=== PATIENT | male | born 1955 | race Two or more races ===

== ENCOUNTER 2020-11-16 19:31 | Inpatient (IN) | payer SELFPAY ==
[~2020-11-16] VITALS: Ht 160 cm; Wt 69.6 kg
--- NOTE | 2020-11-16 20:00 | NUR ---
Patient walked into ER c/o SOB for 5 days. He tested + for Covid 19 on 11/08/20. He states he finished antiobiotic but has worsening SOB. O2 sat on RA between 92%-94%.
[2020-11-16 20:31] LABS: *BILIRUBIN,URIN NEGATIVE (NEGATIVE); *BLOOD, URINE NEGATIVE (NEGATIVE); *CLARITY,URINE CLEAR (CLEAR); *COLOR,URINE YELLOW (YELLOW); *KETONES,URINE NEGATIVE (NEGATIVE); *UROBILINOGEN,URINE 0.2 E.U./dl (NORMAL); LEUKOCYTE ESTERASE ,URINE NEGATIVE (NEGATIVE); NITRITE, URINE NEGATIVE (NEGATIVE); PH,URINE 6.5 (5.0-8.0); UGLUCOSE NEGATIVE (NEGATIVE)
[2020-11-16 20:36] LABS: BASOPHILS % (AUTO) 0.2 % (0.0-2.0); EOSINOPHILS % (AUTO) 0.1 % (0.0-7.0); HEMATOCRIT 41.8 % (36.7-47.1); HEMOGLOBIN 14.7 g/dL (12.5-16.3); LYMPHOCYTES # (AUTO) 0.6 K/uL (20.0-40.0); LYMPHOCYTES % (AUTO) 6.4 % (20.5-51.5); MEAN CORPUSCULAR HEMOGLOBIN 31.9 uug (23.8-33.4); MEAN CORPUSCULAR HGB CONC 35 g/dL (32.5-36.3); MEAN CORPUSCULAR VOLUME 90.9 fL (73.0-96.2); MONOCYTES # (AUTO) 0.5 K/uL (2.0-10.0); MONOCYTES % (AUTO) 5.7 % (0.0-11.0); NEUTROPHILS # (AUTO) 8.1 K/uL (1.8-8.9); NEUTROPHILS % (AUTO) 87.6 % (38.5-71.5); PLATELET COUNT (AUTO) 372 K/uL (152-348); POTASSIUM 4.2 mmol/L (3.5-5.1); WHITE BLOOD COUNT (AUTO) 9.3 K/uL (3.6-10.2)
[2020-11-16 20:59] LABS: BILIRUBIN,TOTAL 0.4 mg/dL (0.2-1.0); TOTAL PROTEIN, SERUM 7.4 g/dL (6.4-8.2)
[2020-11-16] MEDS ORDERED: ENOXAPARIN SODIUM 40 MG/0.4 ML DISP.SYRIN SQ SCH (21:00)
[2020-11-16] MEDS ORDERED: DEXAMETHASONE 4 MG TABLET PO ONE (21:00)
[2020-11-16] MEDS ORDERED: DEXAMETHASONE 1 MG TABLET ONE (21:14)
[2020-11-16] MEDS ORDERED: DEXAMETHASONE 4 MG TABLET ONE (21:14)
--- NOTE | 2020-11-16 21:36 | NUR ---
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
--- NOTE | 2020-11-16 21:38 | NUR ---
DR Olivas speaking with DR Dias.
--- NOTE | 2020-11-16 22:20 | NUR ---
Admitted a 64 years old male with diagnosis of COVID PNA. Patient AAOx4, mainly Japanese speaking. Able to understand and speak some Bengali. Denies any pain. Stated he gets SOB with exertion. Request to have O2 in place. Applied O2 at 2LPM via NC. IV site on right AC intact and patent. SR on tele with PVC's at 69/min. Routine admission care done. Plan of care initiated. COVID isolation precaution initiated. Safety measure initiated and call sanders within reach. Continue to monitor.
--- NOTE | 2020-11-16 22:24 | NUR ---
Transfered to 2nd floor Tele via wheelchair.
[2020-11-16] MEDS ORDERED: ALBUTEROL SULFATE 8 GM HFA.AER.AD IH PRN (22:45)
[2020-11-16] MEDS ORDERED: ONDANSETRON 4 MG/2 ML VIAL IV PRN (22:45)
[2020-11-16] MEDS ORDERED: HYDROCODONE/APAP 5-325MG TABLET PO PRN (22:45)
[2020-11-16] MEDS ORDERED: ACETAMINOPHEN 325 MG TABLET PO PRN (22:45)
--- NOTE | 2020-11-16 22:50 | NUR ---
Telephone call from [facility] and reported patient Rapid test for COVID negative. PCR done and pending result. Patient with history of positive COVID on 11/08/20 per pt report/hx.
[2020-11-16 23:10] VITALS: BP 151/70
[2020-11-16] MEDS ORDERED: AZITHROMYCIN 500 MG VIAL IV ONE (23:30)
[2020-11-16] MEDS: ENOXAPARIN SODIUM 40 MG/0.4 ML DISP.SYRIN SQ SCH (23:47)
[2020-11-16] MEDS: AZITHROMYCIN IV 500 MG in IV DEXTROSE 5% 250 ML IV SCH (23:48)
[2020-11-17] VITALS: BP 129/58
[2020-11-17 04:00] VITALS: BP 114/67
[2020-11-17] MEDS: PANTOPRAZOLE SODIUM 40 MG TABLET.DR PO SCH (06:05)
[2020-11-17 06:17] LABS: BASOPHILS # (AUTO) 0.1 K/uL (0.0-8.0); BASOPHILS % (AUTO) 1.7 % (0.0-2.0); HEMATOCRIT 39.1 % (36.7-47.1); HEMOGLOBIN 13.8 g/dL (12.5-16.3); LYMPHOCYTES # (AUTO) 0.3 K/uL (20.0-40.0); LYMPHOCYTES % (AUTO) 6.6 % (20.5-51.5); MEAN CORPUSCULAR HEMOGLOBIN 32.2 uug (23.8-33.4); MEAN CORPUSCULAR HGB CONC 35 g/dL (32.5-36.3); MONOCYTES # (AUTO) 0.2 K/uL (2.0-10.0); MONOCYTES % (AUTO) 3.8 % (0.0-11.0); NEUTROPHILS % (AUTO) 87.9 % (38.5-71.5); PLATELET COUNT (AUTO) 320 K/uL (152-348); WHITE BLOOD COUNT (AUTO) 4.6 K/uL (3.6-10.2)
--- NOTE | 2020-11-17 06:17 | NUR ---
Patient slept well last night. Denies any pain or SOB. On O2 at 2LPM via NC. O2 sat at 96%. IV site on right AC remains intact and patent. No adverse effect noted from IV ABX. SR on tele with PVC's at 65/min. Needs attended to and met. COVID isolation precaution maintained. Safety measure maintained and call sanders within reach.
[2020-11-17 06:24] LABS: CREATININE 0.9 mg/dL (0.6-1.3); POTASSIUM 5.1 mmol/L (3.5-5.1)
[2020-11-17 06:41] LABS: BILIRUBIN,TOTAL 0.4 mg/dL (0.2-1.0); MAGNESIUM 2.2 mg/dL (1.8-2.4); PHOSPHOROUS 5.1 mg/dL (2.5-4.9); TOTAL PROTEIN, SERUM 6.5 g/dL (6.4-8.2)
[2020-11-17] MEDS: DEXAMETHASONE SOD PHOSPHATE 4 MG INJ IV SCH (09:36)
[2020-11-17 12:00] VITALS: BP 104/58
[2020-11-17] MEDS: CEFTRIAXONE 1 G in IV DEXTROSE 5% 50 ML IV SCH (14:42)
[2020-11-17 16:00] VITALS: BP 105/58
--- NOTE | 2020-11-17 18:44 | NUR ---
pt denies any pain or SOB. On O2 at 2LPM via NC. O2 sat at 97%. IV site on right AC remains intact and patent. No adverse effect noted from IV ABX. SR on tele rate at 95/min. Needs attended to and met. COVID isolation precaution maintained. Safety measure maintained and call light within reach.
--- NOTE | 2020-11-17 19:45 | NUR ---
Pt received, in bed and alert. Denies pain or SOB. On 2L sating at 94%. SR on monitor. Call light is within reach. Bed is locked and in lowest position. No other issues or concerns at this time.
[2020-11-17 20:06] VITALS: BP 119/53
[2020-11-17] MEDS: ENOXAPARIN SODIUM 40 MG/0.4 ML DISP.SYRIN SQ SCH (20:26)
[2020-11-17] MEDS: AZITHROMYCIN IV 500 MG in IV DEXTROSE 5% 250 ML IV SCH (22:02)
[2020-11-17] MEDS: GUAIFENESIN/DEXTROMETHORPHAN 5 ML UDC PO PRN (22:36)
[2020-11-18 00:06] VITALS: BP 119/69
[2020-11-18 04:06] VITALS: BP 120/68
[2020-11-18] MEDS: PANTOPRAZOLE SODIUM 40 MG TABLET.DR PO SCH (06:27)
--- NOTE | 2020-11-18 07:55 | NUR ---
Received PT in bed, awake AO X 4 with safety measures. Denies any pain at this time. No acute distress or SOB noted. PT stated that they slept well last night. PT talking without any difficulty. Will continue to monitor. Safety measures provided, call light within reach, bed low and lock.
[2020-11-18] MEDS: DEXAMETHASONE SOD PHOSPHATE 4 MG INJ IV SCH (09:09)
[2020-11-18 12:00] VITALS: BP 120/61
[2020-11-18] MEDS: CEFTRIAXONE 1 G in IV DEXTROSE 5% 50 ML IV SCH (13:06)
[2020-11-18 16:00] VITALS: BP 116/54
[2020-11-18] MEDS: BOOST BREEZE 237 ML LIQUID PO SCH (16:28)
--- NOTE | 2020-11-18 19:30 | NUR ---
Pt received in bed, resting. Denies pain or SOB. On 2L NC sating at 96%. SR on monitor. Denies chest pain. Bed is locked and in lowest position, call light is within reach. No other issues or concerns at this time.
[2020-11-18 20:03] VITALS: BP 115/66
[2020-11-18] MEDS: AZITHROMYCIN 250 MG TABLET PO SCH (21:11)
[2020-11-18] MEDS: ENOXAPARIN SODIUM 40 MG/0.4 ML DISP.SYRIN SQ SCH (21:13)
[2020-11-18] MEDS: GUAIFENESIN/DEXTROMETHORPHAN 5 ML UDC PO PRN (21:54)
[2020-11-19 00:06] VITALS: BP 117/63
[2020-11-19 04:06] VITALS: BP 130/67
[2020-11-19] MEDS: PANTOPRAZOLE SODIUM 40 MG TABLET.DR PO SCH (06:51)
--- NOTE | 2020-11-19 08:00 | NUR ---
Received PT in bed, awake AO X 4 with safety measures. Denies any pain at this time. No acute distress or SOB noted. PT stated that they slept well last night. IV access intact, patent with no swelling or bleeding noted. PT talking without any difficulty. Safety measures provided, call light within reach, bed low and lock. Will continue to monitor.
[2020-11-19] MEDS: DEXAMETHASONE SOD PHOSPHATE 4 MG INJ IV SCH (08:36)
[2020-11-19] MEDS: BOOST BREEZE 237 ML LIQUID PO SCH ×2 (08:36→16:24)
[2020-11-19 11:42] VITALS: BP 116/63
[2020-11-19 14:50] VITALS: BP 105/56
--- NOTE | 2020-11-19 15:00 | NUR ---
Serina Armenta requested for O2 status update. 02 Sat on Room Air at 95-96%. Will be discharge today. Updated daughter, Shani.
--- NOTE | 2020-11-19 18:20 | NUR ---
PT in bed, awake AO X 4 with safety measures. Denies any pain at this time. No acute distress or SOB noted. PT continues to saturate in room air at 96%. PT able to talk without any difficulty. Ambulates to toilet without any exertion. Safety measures provided, call light within reach, bed low and lock. Will endorse to night coordinator nurse.
[2020-11-19] MEDS ORDERED: DEXA4TAB PO (18:58)
[2020-11-19] MEDS ORDERED: DOXY100C41 PO (18:59)
--- NOTE | 2020-11-19 19:30 | NUR ---
Received patient in bed, alert and awake. Denies pain or SOB. On RA sating at 94%. SR on monitor. Bed is locked and in lowest position. Call light is within reach. No other issues or concerns at this time.
[2020-11-19 20:06] VITALS: BP 129/74
[2020-11-19] MEDS: ENOXAPARIN SODIUM 40 MG/0.4 ML DISP.SYRIN SQ SCH (20:33)
[2020-11-19] MEDS: AZITHROMYCIN 250 MG TABLET PO SCH (20:33)
--- NOTE | 2020-11-19 22:00 | NUR ---
Pt discharged at 2129 and was picked up by . Denies pain or SOB. All belongings accounted for. IV removed. Pt left via wheelchair and was stable entire transfer.
== END 2020-11-19 21:30 | disposition home or self-care (01) | DRG 177 ==
LOC: ER 19:31 → TELE 22:08
PROVIDERS: ADMIT Nurse Practitioner Acute Care; ATTEND Nurse Practitioner Acute Care
DX: U07.1 COVID-19 (principal); J96.01 Acute respiratory failure with hypoxia; J12.82 Pneumonia due to coronavirus disease 2019; J15.9 Unspecified bacterial pneumonia; E46 Unspecified protein-calorie malnutrition; R53.1 Weakness; E88.09 Other disorders of plasma-protein metabolism, not elsewhere classified; Z68.27 Body mass index [BMI] 27.0-27.9, adult
CPT/HCPCS: 36415; 70030-TC; 71045; 83605; 83615; 83735; 84100; 85025; 85730; 86140; 86803; 87536; 93005; A4663; G0378; J0456; J0696; J1100; J1650; J3535; J7060; J8540; Q0144; U0003